=== PATIENT | female | born 1990 | race Caucasian/White ===

== ENCOUNTER 2017-11-03 19:57 | Emergency (ER) | payer OTHER ==
[~2017-11-03 19:57] MED LIST: PRILOSEC OTC20 M1 PO; ZOFRAN4 M2 PO
--- NOTE | 2017-11-03 23:01 | ED SYNCOPE COMPLAINT ---
History of Present Illness General Chief Complaint: General Adult Stated Complaint: "PASSED OUT AND SPASHED FACE" Source: patient, family Exam Limitations: no limitations Vital Signs & Intake/Output Vital Signs & Intake/Output Vital Signs Date Time Temp Pulse Resp B/P B/P Pulse O2 O2 Flow FiO2 Mean Ox Delivery Rate 11/04 0039 78 18 140/89 100 Room Air 11/03 2307 98.0 92 20 142/89 100 Room Air 11/03 2305 Room Air 11/03 2001 98.3 90 18 134/97 99 Room Air Allergies Uncoded Allergies: SHRIMP (Severe, 07/24/10) CATS (Mild, 07/24/10) MOLD (Mild, 07/24/10) POLLEN (Mild, 07/24/10) Reconcile Medications Fexofenadine HCl (Rosa Allergy) 180 MG TABLET 1 TAB PO DAILY ALLERGIES ( Reported) Norethindrone-E.estradiol-Iron (Junel Fe 1 MG-20 Mcg Tablet) 1 MG-20 MCG (21)/75 MG (7) TABLET 1 TAB PO DAILY CONTROL (Reported) Omeprazole Magnesium (Prilosec Otc) 20 MG TABLET.DR 1 TAB PO DAILY DYSPHAGIA Ondansetron HCl (Zofran) 4 MG TABLET 1 TAB PO Q6-8P PRN NAUSEA Triage Note: PT TO TRIAGE WITH LAC TO HEAD AND ABRAISION TO BRIDGE OF NOSE S/P PASSING OUT STRIPER SPRAY GUN. PT WAS AT A PICNIC, FELT SHOOTING PAIN IN HER ABD AND PASSED OUT HITTING FACE. STATES THIS HAS HAPPENED BEFORE. NEVER HAD A FORMAL DX MADE. C/O HEADACHE. DENIES N/V/DIZZINESS Triage Nurses Notes Reviewed? yes Timing: single episode today Context: sitting on toilet Episode Description: see below Loss of Consciousness: brief (seconds) Associated Symptoms: headache : No Patient currently breastfeeds: No HPI: 27 yo woman h/o syncope "at least 3 or 4 times in the past month" presents after a syncopal episode. She notes, "I had lower abdominal cramps... felt like I needed to go to the bathroom.... I sat on the toilet... then I felt warm and got dizzy... thenI passed out and hit my head on the sink." Her notes that she passed out only for a few moments. She suffered a small laceration on her forehead and bruising on the bridge of her nose. She notes no other injury. She noted no chest pain, palpitations, dyspnea, chills. Her abdominal discomfort has resolved. She has no dysuria, polyuria. She notes that she had not had follow up for her prior episodes. She is otherwise well. Past History Travel History Traveled to [place] past 21 day No Medical History Any Pertinent Medical History? see below for history Neurological: NONE EENT: NONE Cardiovascular: NONE Respiratory: asthma Gastrointestinal: NONE Hepatic: NONE Renal: NONE Musculoskeletal: NONE Psychiatric: NONE Endocrine: NONE Blood Disorders: NONE Cancer(s): NONE ADJUNCT INSTRUCTOR/Reproductive: NONE Surgical History Surgical History: non-contributory Psychosocial History What is your primary language Greek Tobacco Use: Never used Family History Hx Contributory? No Review of Systems Review of Systems Constitutional: Reports: no symptoms. EENTM: Reports: no symptoms. Respiratory: Reports: no symptoms. Cardiovascular: Reports: no symptoms. GI: Reports: no symptoms. Genitourinary: Reports: no symptoms. Musculoskeletal: Reports: no symptoms. Skin: Reports: no symptoms. Neurological/Psychological: Reports: no symptoms. All Other Systems: Reviewed and Negative Physical Exam Physical Exam Cranial Nerves: normal hearing, normal speech, PERRL Comments: Review of Systems - except as otherwise noted in HPI Review of Systems Constitutional:no symptoms. EENTM:no symptoms. Respiratory:no symptoms. Cardiovascular:no symptoms. GI:no symptoms. Genitourinary:no symptoms. Musculoskeletal:no symptoms. Skin:no symptoms. Neurological/Psychological:no symptoms. Hematologic/Endocrine:no symptoms. Immunologic/Allergic:no symptoms. All Other Systems: Reviewed and Negative Physical Exam Physical Exam General Appearance: well developed/nourished, no apparent distress Head: atraumatic, normal appearance Eyes: Bilateral: normal appearance. Ears, Nose, Throat: normal pharynx, normal ENT inspection Neck: normal inspection, supple, full range of motion Respiratory: normal breath sounds, chest non-tender, no respiratory distress, quiet respiration, lungs clear Cardiovascular: regular rate/rhythm Gastrointestinal: normal bowel sounds, soft, non-tender, no organomegaly Back: normal inspection, normal range of motion Extremities: normal inspection, normal capillary refill, normal range of motion, no edema Neurologic/Psych: no motor/sensory deficits, awake, alert, oriented x 3 Skin: intact, normal color, warm/dry Core Measures ACS in differential dx? No CVA/TIA Diagnosis: No Sepsis Present: No Sepsis Focused Exam Completed? No Progress Differential Diagnosis: vasovagal syncope vs other. Plan of Care: Orders Procedure Date/time Status Add-on Test (ER Only) 11/04 2307 Active D-DIMER 11/03 2299 Complete TROPONIN LEVEL 11/03 2014 Complete LIPASE 11/03 2014 Complete HEPATIC FUNCTION PANEL 11/03 2014 Complete HUMAN BETA HCG SCREEN 11/03 2014 Complete CBC WITHOUT DIFFERENTIAL 11/03 2014 Complete BASIC METABOLIC PANEL 11/03 2014 Complete AMYLASE 11/03 2014 Complete EKG 11/03 2000 Active Laboratory Tests 11/03/170: Anion Gap 12, Estimated GFR > 60, BUN/Creatinine Ratio 15.0, Glucose 101 H, Calcium 9.9, Total Bilirubin 0.5, Direct Bilirubin 0.2, AST 23, ALT 30, Alkaline Phosphatase 68, Troponin I < 0.01, Total Protein 8.3 H, Albumin 4.6, Amylase 69 , Lipase 90, Total Beta HCG NEGATIVE, D-Dimer High Sensitivty < 200, CBC w Diff NO MAN DIFF REQ, RBC 4.94, MCV 86.4, MCH 29.0, MCHC 33.5, RDW 12.5, MPV 8.1, Gran % 64.3, Lymphocytes % 21.5, Monocytes % 6.9, Eosinophils % 6.2 H, Basophils % 1.1, Absolute Granulocytes 6.4, Absolute Lymphocytes 2.2, Absolute Monocytes 0.7 H, Absolute Eosinophils 0.6, Absolute Basophils 0.1 Diagnostic Imaging: Viewed by Me: CT Scan. Discussed w/RAD: CT Scan. Radiology Impression: PATIENT: VIRGINIA SORIA PRESENT AGE: 27 PATIENT ACCOUNT NO: [id number] : 92 LOCATION: [facility] ORDERING PHYSICIAN: Mitchell Reese MD SERVICE DATE: 11/03/17 EXAM TYPE: CAT - CT HEAD WO IV CONTRAST EXAMINATION: CT HEAD WITHOUT CONTRAST CLINICAL INFORMATION: Contusion. Laceration. COMPARISON: July 25, 2010. TECHNIQUE: Contiguous helical images of the brain were obtained without IV contrast. Multiplanar reconstructions were performed. DLP: 614 mGy-cm. FINDINGS: There are no pathologic extra-axial fluid collections. The lateral, third, fourth ventricles are nondilated and concordant with the appearance of the sulci. There is no evidence for acute intraparenchymal hemorrhage or infarct. There is neither mass nor mass effect. There is no shift of midline structures. There is patchy ethmoid and sphenoid sinus opacification. The paranasal sinuses and mastoid air cells are otherwise clear. There are no osseous lesions. IMPRESSION: No evidence for acute intracranial injury. Paranasal sinus disease as stated above. DICTATED BY: Harvey Molina MD DATE/TIME DICTATED:11/04/1726 CRM ANALYST:RAYSA DATE/TIME TRANSCRIBED:11/04/1726 CONFIDENTIAL, DO NOT COPY WITHOUT APPROPRIATE AUTHORIZATION. <Electronically signed in Other Vendor System> SIGNED BY: Harvey Molina MD 11/04/1732 Departure Departure Disposition: HOME OR SELF CARE Condition: Stable Clinical Impression Primary Impression: Syncope Secondary Impressions: Nose injury, Scalp laceration Referrals: Patient Has No Primary Care Dr (PCP/Family) Departure Forms: Customer Survey General Discharge Information Comments pt feels well at discharge... dermabond applied to scalp laceration... excellent result... pt referred to cards.
[2017-11-03 23:13] LABS: ABSOLUTE BASOPHIL COUNT 0.1 /CUMM (0.0-0.2); ABSOLUTE EOSINOPHIL COUNT 0.6 /CUMM (0.0-0.7); ABSOLUTE GRANULOCYTE CT 6.4 /CUMM (1.4-6.5); ABSOLUTE LYMPH COUNT 2.2 /CUMM (1.2-3.4); ABSOLUTE MONOCYTE COUNT 0.7 /CUMM (0.10-0.60); BASOPHIL % 1.1 % (0.0-2.0); EOSINOPHIL % 6.2 % (0-5); GRANULOCYTE % 64.3 % (42.2-75.2); HEMATOCRIT 42.7 % (37-47); MEAN CORPUSCULAR HGB CONC 33.5 G/DL (33.0-37.0); MEAN CORPUSCULAR VOLUME 86.4 FL (81.0-99.0); MEAN PLATELET VOLUME 8.1 FL (7.4-10.4); PLATELET COUNT 478 /CUMM (130-400); RBC DISTRIBUTION WIDTH 12.5 % (11.5-14.5); RED BLOOD CELL CT 4.94 /CUMM (4.20-5.40)
--- NOTE | 2017-11-04 00:33 | CT SCAN REPORT ---
EXAMINATION: CT HEAD WITHOUT CONTRAST CLINICAL INFORMATION: Contusion. Laceration. COMPARISON: July 25, 2010. TECHNIQUE: Contiguous helical images of the brain were obtained without IV contrast. Multiplanar reconstructions were performed. DLP: 614 mGy-cm. FINDINGS: There are no pathologic extra-axial fluid collections. The lateral, third, fourth ventricles are nondilated and concordant with the appearance of the sulci. There is no evidence for acute intraparenchymal hemorrhage or infarct. There is neither mass nor mass effect. There is no shift of midline structures. There is patchy ethmoid and sphenoid sinus opacification. The paranasal sinuses and mastoid air cells are otherwise clear. There are no osseous lesions. IMPRESSION: No evidence for acute intracranial injury. Paranasal sinus disease as stated above.
[2017-11-04] MEDS ORDERED: JUNEL FE 1 MG-1 EACH PO (00:38)
[2017-11-04 00:39] VITALS: BP 140/89
[2017-11-04] MEDS ORDERED: ALLEGRA ALLERG180 M1 PO (00:39)
== END 2017-11-04 00:40 ==
LOC: ERH 19:57
PROVIDERS: Pediatrics
DX: S01.01XA Laceration without foreign body of scalp, initial encounter (principal); S09.92XA Unspecified injury of nose, initial encounter; R55 Syncope and collapse; R10.9 Unspecified abdominal pain; W18.12XA Fall from or off toilet with subsequent striking against object, initial encounter
CPT/HCPCS: 93005; 93010